=== PATIENT | male | born 1965 | race Caucasian/White ===

== ENCOUNTER 2025-02-18 06:01 | Day surgery (SDC) | payer BC, SELFPAY ==
[2025-02-18] VITALS (10 sets, daily range): BP systolic 113–144; BP diastolic 75–87; BMI 33.2
[2025-02-18] MEDS: NORMOSOL-R/PLASMALYTE-A 1000 IV (07:15)
[2025-02-18] MEDS: TYLENOL 1000 MG PO (07:29)
--- NOTE | 2025-02-18 11:16 | W.IMMPOSTOP ---
Surgical Immed Post Op Note
-
Primary Surgeon: López Ibarra MD
Assisting Surgeon: Dashawn Brooks PA-C
Pre-op Diagnosis: left shoulder rotator cuff tear
Post-op Diagnosis: left shoulder rotator cuff tear
Procedure Performed: arthroscopic left shoulder rotator cuff repair
Anesthesia Type: general
Specimen / Cultures: none
Estimated Blood Loss: 2mL
Complications: none apparent
Implants: Arthrex 2.6mm FiberTak RC x2, 4.75mm Biocomposite knotless SwiveLock x2
Operative Findings: large rotator cuff tear, grade 1 chondrosis of humeral head
Operative dictation #: [id number]
== END 2025-02-18 13:37 | disposition home or self-care (01) ==
LOC: SDS 06:01
PROVIDERS: ATTENDING PHYSICIAN Student in an Organized Health Care Education/Training Program
DX: M75.102 Unspecified rotator cuff tear or rupture of left shoulder, not specified as traumatic (principal)
CPT/HCPCS: 29827; C1713